=== PATIENT | male | born 1970 | race Caucasian/White ===

== ENCOUNTER 2024-09-18 14:00 | Outpatient (REF) | payer OTHER, SELFPAY ==
[2024-09-18 17:17] LABS: Blood Urea Nitrogen 9 mg/dL (9-16); Estimated Glomerular Filt Rate > 60
== END 2024-09-18 14:01 | disposition home or self-care (01) ==
LOC: HO.LAB 14:00
PROVIDERS: PCP Physician Assistant; Visit Provider Surgery
DX: G89.29 Other chronic pain (principal); R10.32 Left lower quadrant pain
CPT/HCPCS: 36415; 82565; 84520; 99202

== ENCOUNTER 2024-09-18 14:00 | Outpatient (AMB) | payer OTHER, SELFPAY ==
--- NOTE | 2024-09-18 14:18 | A.OFFVIS_ITS ---
Vital Signs 09/18/24 14:18 Height 5 ft 10 in Intake Visit Reasons: diverticulitis Intake Note: This patient was self referred for diverticulitis. 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 Lapidary Apprentice Required: No Accompanied by: Self / Same As Patient Allergies citalopram [From Celexa] Allergy (Verified 09/18/24 14:32) Unknown Medication List - Last Reconciled 09/18/24 by Karri Carnes MD albuterol sulfate 90 mcg/actuation inhalation cyclobenzaprine 10 mg PO TID fluticasone propion-salmeterol 100-50 mcg/dose (Wixela Inhub) inhalation gabapentin 300 mg PO TID magnesium oxide 250 mg PO DAILY quetiapine 50 mg PO BEDTIME umeclidinium-vilanterol 62.5-25 mcg/actuation (Anoro Ellipta) 1 ea inhalation DAILY HPI HPI diverticulitis: Details: 53-year-old male who says he is here because of chronic left groin pain. He describes having bilateral inguinal hernia repair in the past. This was about 10 years ago. He says that since that time, he has been noticing this chronic pain on the left groin. He says that this is on his testicle as well as the medial aspect of this thigh. He says that this seems to be persistent throughout the years and this seems to be worse Review of his records from 2020 showed that he had a CAT scan in [facility] which did not reveal any pathology at that time. He says that he may have too much small intestine . He says he may have diverticulitis as well although he had a colonoscopy done about 2 years ago in [place] which did not reveal any diverticulosis He has good oral intake. He denies any GI complaints. He denies any urinary complaints. He denies any palpable mass on the left groin. [facility] Medical History Chronic pain of left groin Surgical History History of left inguinal hernia repair Family History Other Family history unknown Social History Alcohol intake: unknown Patient Tobacco Use Status: Tobacco use Unknown Review of Systems Const Denies chills and Denies fever(s) Card Denies chest pain, Denies dyspnea and Denies dyspnea on exertion Resp Denies cough, Denies dyspnea and Denies dyspnea on exertion GI Denies hematochezia and Denies change in bowel habits Denies hematuria and Denies difficulty urinating Musc Details: Chronic back pain Reports back pain and Denies limited range of motion Neuro Denies focal weakness and Denies convulsions Psych Denies depression and Denies mood swings Physical Exam Const General: comfortable and no acute distress Orientation/consciousness: patient oriented x3 Neck Neck: Yes no lymphadenopathy Resp Auscultation: clear to auscultation bilaterally Cardio Rhythm: regular rhythm GI Other: No palpable mass on the left groin, no palpable mass to the scrotum or testicle Palpation (GI): Soft to palpation, nontender and no guarding Neuro General: patient oriented x3 Assessment & Plan Assessment & Plan (1) Chronic pain of left groin: Code(s): R10.32 - Left lower quadrant pain; G89.29 - Other chronic pain Category: Medical Plan: I do not feel any recurrent hernia. Review of his records show that he had a CAT scan in [place] 3 years ago which did not reveal any pathology either I explained to him that the likely etiology is that he may have some injury from his previous hernia repair on the left groin. I am going to order for a CAT scan IV contrast to rule out any other pathology at this time. I explained this to him He feels that he has a GI problem although it was unlikely at this time based on the location of his pain which is on the medial thigh as well as the scrotum and groin I will see him again in the office after his CAT scan to review this with him. His exam is otherwise benign Orders: Orders CT abdomen pelvis w IV con Today G89.29 - Other chronic pain, R10.32 - Left lower quadrant pain Creatinine Today G89.29 - Other chronic pain, R10.32 - Left lower quadrant pain Blood Urea Nitrogen Today G89.29 - Other chronic pain, R10.32 - Left lower quadrant pain Coding Level of Care Code New Pt Level 3 (01773) Diagnoses Chronic pain of left groin R10.32; G89.29
== END 2024-09-18 14:58 | disposition home or self-care (01) ==
PROVIDERS: PCP Physician Assistant; Visit Provider Surgery
DX: R10.32 Left lower quadrant pain (principal); G89.29 Other chronic pain
CPT/HCPCS: 99203

== ENCOUNTER 2024-10-12 13:50 | Outpatient (REF) | payer OTHER, SELFPAY ==
[2024-10-12 16:15] LABS: Blood Urea Nitrogen 11 mg/dL (9-16); Estimated Glomerular Filt Rate > 60
== END 2024-10-12 13:51 | disposition home or self-care (01) ==
LOC: HO.LAB 13:50
PROVIDERS: PCP Physician Assistant; Visit Provider Surgery
DX: R10.32 Left lower quadrant pain (principal); G89.29 Other chronic pain
CPT/HCPCS: 36415; 82565; 84520